=== PATIENT | female | born 1985 | race Asian ===

== ENCOUNTER 2019-04-17 07:56 | Day surgery (SDC) | payer MEDICAID ==
[~2019-04-17] VITALS: Ht 154.9 cm; Wt 60.8 kg
[2019-04-17 08:20] LABS: BASOPHILS # (AUTO) 0.1 K/uL (0.0-0.2); BASOPHILS % (AUTO) 0.8 % (0.0-2.0); EOSINOPHILS # (AUTO) 0.1 K/uL (0.0-0.4); EOSINOPHILS % (AUTO) 1.3 % (0.0-4.0); HEMATOCRIT 40.1 % (36-48); HEMOGLOBIN 13.1 g/dL (12.0-16.0); LYMPHOCYTES # (AUTO) 2.5 K/uL (1.0-5.5); MEAN CORPUSCULAR HEMOGLOBIN 31 pg (27-31); MEAN CORPUSCULAR HGB CONC 33 % (32-36); MEAN CORPUSCULAR VOLUME 95 fL (79.0-98.0); MONOCYTES # (AUTO) 0.6 K/uL (0.0-1.0); NEUTROPHILS # (AUTO) 4.1 K/uL (1.8-7.7); NEUTROPHILS % (AUTO) 55.9 % (40.0-70.0); PLATELET COUNT (AUTO) 233 K/uL (130-430); RED BLOOD CELL COUNT(AUTO) 4.22 MIL/uL (4.2-6.2); WHITE BLOOD COUNT (AUTO) 7.4 K/uL (4.8-10.8)
[2019-04-17 08:43] LABS: ALBUMIN 3.8 g/dL (3.4-4.8); CALCIUM 8.5 mg/dL (8.4-11.0); CREATININE 0.58 mg/dL (0.55-1.30); POTASSIUM 4.1 mmol/L (3.5-5.1); TOTAL BILIRUBIN 0.4 mg/dL (0.0-1.0)
[2019-04-17 08:58] LABS: HCG,QUAL RESULT NEGATIVE (NEGATIVE)
[2019-04-17] MEDS ORDERED: ONDANSETRON HCL 4 MG/2 ML VIAL IVP PRN ×2 (09:15→16:00)
[2019-04-17] MEDS ORDERED: fentaNYL CITRATE/PF 100 MCG/2 ML AMP IVP PRN ×2 (09:15)
[2019-04-17] MEDS ORDERED: MIDAZOLAM HCL 5 MG/ML VIAL (VERSED) IV ONE (15:45)
[2019-04-17] MEDS ORDERED: ONDANSETRON HCL 4 MG/2 ML VIAL ONE (15:45)
[2019-04-17] MEDS ORDERED: DEXAMETHASONE SOD PHOSPHATE 4 MG/ML VIAL ONE (15:45)
[2019-04-17] MEDS ORDERED: NS IRRIG SOLN 1000 ML IR ONE (15:45)
[2019-04-17] MEDS ORDERED: LIDOCAINE/EPI 1% 1:100000 20 ML VIAL INJ ONE (15:45)
[2019-04-17] MEDS ORDERED: SEVOFLURANE 15 MIN GAS INH ONE (15:45)
[2019-04-17] MEDS ORDERED: PROPOFOL 200MG/ 20ML VIAL (DIPRIVAN) IV ONE (15:45)
[2019-04-17] MEDS ORDERED: fentaNYL CITRATE/PF 100 MCG/2 ML AMP ONE (15:45)
[2019-04-17] MEDS ORDERED: ROCURONIUM BROMIDE 10 MG/ML (ZEMURON) ONE (15:45)
[2019-04-17] MEDS ORDERED: LR 1,000 ML IV.SOLN IV ONE (15:45)
[2019-04-17] MEDS ORDERED: HYDROcodone/ACETAMIN 5-325 MG TAB (NORCO/ VICODIN) PO PRN ×2 (16:00)
[2019-04-17] MEDS ORDERED: MORPHINE 2 MG/ML INJ. SYRINGE IVP PRN (16:00)
[2019-04-17 17:00] LABS: ALBUMIN 3.7 g/dL (3.4-4.8); CALCIUM 8.4 mg/dL (8.4-11.0)
[2019-04-17] MEDS ORDERED: CALCIUM 500 MG/TAB PO ONE (17:00)
[2019-04-17 17:05] VITALS: BP_SYST 121
[2019-04-17 20:00] VITALS: BP_SYST 114
[2019-04-17] MEDS: 0.45% NACL 1,000 ML IV SCH (20:17)
[2019-04-17] MEDS: MUPIROCIN 2% TOPICAL OINTMENT 22 GM TP SCH (20:17)
[2019-04-17 20:35] LABS: ALBUMIN 3.7 g/dL (3.4-4.8); CALCIUM 8.1 mg/dL (8.4-11.0)
[2019-04-17] MEDS ORDERED: CALCIUM 500 MG/TAB PO SCH (21:00)
[2019-04-18] VITALS: BP_SYST 115
[2019-04-18] MEDS: 0.45% NACL 1,000 ML IV SCH (06:28)
[2019-04-18 06:35] LABS: ALBUMIN 3.5 g/dL (3.4-4.8); CALCIUM 7.9 mg/dL (8.4-11.0); CREATININE 0.51 mg/dL (0.55-1.30); POTASSIUM 3.4 mmol/L (3.5-5.1)
[2019-04-18] MEDS ORDERED: KCL 20 mEq in 0.45% NS 1000 mL 1,000 ML IV SCH (08:13)
[2019-04-18] MEDS ORDERED: CALCIUM CARBONATE/VITAMIN D3 1 TAB TABLET PO ONE (08:15)
[2019-04-18 08:26] VITALS: BP_SYST 117
[2019-04-18] MEDS: MUPIROCIN 2% TOPICAL OINTMENT 22 GM TP SCH (11:57)
[2019-04-18] MEDS ORDERED: CALCIUM GLUCONATE 500 MG TABLET PO ONE (12:30)
[2019-04-18 12:42] VITALS: BP_SYST 118
[2019-04-18] MEDS ORDERED: CALCIUM 500 MG/TAB PO ONE (13:00)
[2019-04-18] MEDS ORDERED: HYDR-4272 PO (13:41)
[2019-04-18] MEDS ORDERED: CALC0.258 PO (13:41)
[2019-04-18] MEDS ORDERED: CALCIUM CARBONATE PO (13:45)
[2019-04-18 14:03] VITALS: BP_SYST 117
[2019-04-18] MEDS ORDERED: CALCIUM CARBONATE/VITAMIN D3 1 TAB TABLET PO SCH (15:00)
[2019-04-18 16:28] VITALS: BP_SYST 115
== END 2019-04-18 15:26 | disposition home or self-care (01) ==
LOC: SDS 07:56 → SMU 07:58 → EDSTATUS 10:15 → SMU 14:24 → STU 17:21 → SDS 04-18 15:26
PROVIDERS: ATTEND Otolaryngology
DX: O9A.112 Malignant neoplasm complicating pregnancy, second trimester (principal); C73 Malignant neoplasm of thyroid gland; O99.282 Endocrine, nutritional and metabolic diseases complicating pregnancy, second trimester; E83.51 Hypocalcemia; Z3A.21 21 weeks gestation of pregnancy
CPT/HCPCS: 36415; 60240; 80053; 82040; 82310; 83970; 84703; 85025; 87081 ×2; 88307; 88331; J1100; J2250; J2405; J2704; J3010; J7120; 80048; J3480